=== PATIENT | female | born 1960 ===

== ENCOUNTER 2025-07-20 08:05 | Outpatient (AMB) | payer MEDICARE, SELFPAY ==
--- OUTSIDE RECORDS SUMMARY | 2025-07-20 08:25 | XMS_ITS | Clinical Summary ---
Author Organization Patient Business Ser [facility] Address [address] [place] [address] Care Team Providers Care Offc Spec Name Role Phone Candace Mirza MD Primary Care Provider Allergies No known active allergies Medications acetaminophen (TYLENOL 8 HOUR) 650 mg 8 hr tablet Take 1 Tablet by mouth every 8 hours as needed for Pain for up to 30 days. 09/09/20 22 Active calcium carbonate-vit D3-min 600 mg-10 mcg (400 unit) tablet Take 1 Tablet by mouth daily. 01/05/20 24 Active ibuprofen (ADVIL,MOTRIN) 600 mg tablet Take 1 Tablet by mouth every 8 hours as needed for Pain (for back pain as needed.). 10/27/20 23 Active rizatriptan (MAXALT-ACID PUMP OPERATOR) 10 mg disintegrating tablet May repeat in 2 hours if unresolved. Do not exceed 30 mg in 24 hours. 9 tablet 1 01/19/20 25 Active atorvastatin (LIPITOR) 20 mg tabletIndications: Hyperlipidemia, unspecified TAKE 1 TABLET BY MOUTH EVERY DAY 90 tablet 1 03/07/20 25 Active spironolactone (ALDACTONE) 25 mg tabletIndications: Essential hypertension Take 1 tablet (25 mg total) by mouth 1 (one) time each day. 90 each 1 04/06/20 25 Active semaglutide (Wegovy) 2.4 mg/0.75 mL injection penIndications:Cla ss 2 obesity without serious comorbidity with body mass index (BMI) of 36.0 to 36.9 in adult, unspecified obesity type Inject 2.4 mg under the skin every 7 (seven) days. INJECT 2.4 MG SUBCUTANEOUSLY ONE TIME PER WEEK 9 mL 1 04/06/20 25 Active triamterene-hydroC HLOROthiazide (MAXZIDE) 75-50 mg per tablet Take 1 tablet by mouth 1 (one) time each day. Active topiramate (TOPAMAX) 100 mg tablet TAKE 1 TABLET BY MOUTH TWICE A DAY 180 tablet 05/23/20 25 Active amLODIPine (NORVASC) 10 mg tablet Take 1 tablet (10 mg total) by mouth 1 (one) time each day. 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 Iron deficiency anemia 03/01/2015 Essential hypertension, benign 10/21/2009 Hyperlipidemia 10/21/2009 Migraine 10/21/2009 Encounters Date Type Department Care Team Description 04/19/2025 1:15 PM EDT Office Visit Pulmonolgy - [address] [place] [address] Olga Cooper MD Obstructive sleep apnea syndrome (Primary Dx); Sleep apnea, unspecified; Nocturnal hypoxemia; Gastroesophageal reflux disease without esophagitis; Morbid obesity ([facility] V24, [facility] V28) from Last 3 Months Immunizations Name Administration Dates Next Due Influenza Quadravalent, MDCK , 0.5ml, preservative free (Flucelvax) 6mo and older 07/30/2023,08/05/2022,08/03/2021 Influenza trivalent, 0.5mL, preservative free (Fluarix; FluLaval; Fluzone) ages 6mo and older (Afluria) 3 years and older 09/12/2024,07/30/2023,08/26/2020,2018,09/30/2013,09/16/2012,08/09/2011 Influenza trivalent, MDCK, 0 .5mL, preservative free (Flucelvax) 6mo and older 09/11/2024 Influenza trivalent, with preservative (Fluzone; Afluria) 6mo and older 08/26/2020,08/19/2019,09/30/2013,2011,08/09/2011 Moderna SARS-CoV-2 COVID-19, mRNA, LNP-S, preservative free 10/22/2021 RSV, bivalent, protein subun it RSVpreF, 0.5mL, Preservative Free (Arexvy) 60yo and older 01/07/2025,01/06/2024 Td Tetanus diptheria (Tdvax) 7yo and older 08/03/2021,10/20/2009 Tdap Tetanus diptheria acell ular pertussis (Boostrix; Adacel) 7yo and older 07/30/2023 Zoster recombinant (Shingrix ) 19yo and older 11/18/2020,08/26/2020 Surgical History Surgery Date Site/Laterality Comments LAPAROSCOPIC GASTRIC BANDING 05/2009 PROCEDURE: LAP ADJUSTABLE GASTRIC BAND BACK SURGERY 2003 PROCEDURE: HISTORICAL BACK SURGERY; COMMENT: Bulging, herniated disks L4 - L5 COLONOSCOPY 08/24/2010 PROCEDURE: HISTORICAL COLONOSCOPY; COMMENT: normal; repeat in ten years HERNIA REPAIR 12/11/2018 PROCEDURE: HISTORICAL HERNIA REPAIR/ING; COMMENT: unfill of lap band and laparoscopic hiatal hernia repair COLONOSCOPY 2017 PROCEDURE: HISTORICAL COLONOSCOPY; COMMENT: Celia; erosions in the TI. UPPER GASTROINTESTINAL ENDOSCOPY 2017 PROCEDURE: CT UPPER GI ENDOSCOPY PERFORMED; COMMENT: Celia; PREET grade A reflux esophagitis. SHOULDER SURGERY 09/09/2022 Left PROCEDURE: HISTORICAL SHOULDER SURGERY; COMMENT: decompression and rotator cuff repair HYSTERECTOMY PROCEDURE: HISTORICAL HYSTERECTOMY Medical History Medical History Date Comments Hyperlipidemia DX:Hyperlipidemi a Migraine 10/21/2009 DX:Migraine GERD (gastroesophageal reflux disease) 7 DX:GERD (gastroesophageal reflux disease) History of basal cell carcinoma 04/25/2016 DX:History of basal cell carcinoma; COMMENT: Nose LAP-BAND surgery status 10/21/2009 DX:LAP-B AND surgery status Iron deficiency anemia 03/01/2015 DX:Iron d eficiency anemia Essential hypertension, benign 10/21/2009 D X:Essential hypertension, benign Calcific tendinitis of right shoulder 12/31/2017 DX:Calcific tendinitis of right shoulder Biceps tendinitis of right shoulder 12/31/2017 DX:Biceps tendinitis of right shoulder Osteopenia 08/31/2018 DX:Osteopenia; C OMMENT: 07/2017 T score hip -1.1 FRAX score 6.1% 10 year fracture risk 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 surgical procedure 08/31/2018 DX: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 surgical procedure; COMMENT: 07/2017 U/S unchanged; ovarian cysts stable; Post hysterectomy Calculus of gallbladder with out cholecystitis without obstruction 05/25/2019 DX:Calculus of gallb ladder without cholecystitis without obstruction Family History Medical History Relation Name Comments Hypertension Brother Diabetes Father hypertension, s troke Hypertension Mother Lung cancer Sister 1 age 54 Hypertension Sister 2 Hypertension Sister 3 Hypertension Sister 4 Hypertension Sister 5 Breast cancer Neg Hx Cancer of Small Bowel Neg Hx Colon cancer Neg Hx Kidney cancer Neg Hx Ovarian cancer Neg Hx Pancreatic cancer Neg Hx Prostate cancer Neg Hx Uterine cancer Neg Hx Relation Name Status Comments Brother Alive Father Alive /strok e Maternal Grandfather Maternal Grandmother Mother Alive Paternal Grandfather Paternal Grandmother Sister 1 Sister 2 Alive Sister 3 Alive Sister 4 Alive Sister 5 Alive Social History Tobacco Use Types Packs/Day Years Used Date Smoking Tobacco: Former Cigarettes 0.5 29 0 1975 - 2004 Smokeless Tobacco: Never Tobacco Cessation:Counseling Given: Not Answered Alcohol Use Standard Drinks/Week Comments Yes 0 (1 standard drink = 0.6 oz pur e alcohol) Housing Instability Answer Date Recorde d Are you worried that in the next 2 months you may not have stable housing? Patient declined 10/18/2024 Food Access & Nutrition Answer Date Rec orded Do you have access to a vari ety of food including fruits and vegetables? Patient declined 10/18/2024 Access to Healthcare Answer Date Record ed Within the last 3 months, ho w many times did you visit the emergency department for your medical care? 0 10/18/2024 Health Literacy Answer Date Recorded How often do you need to hav e someone help you when you read instructions, pamphlets, or other written material from your doctor or pharmacy? Never 10/18/2024 Caregiver: How often do you need to have someone help you when you read instructions, pamphlets, or other written material from your doctor or pharmacy? Not on file 10/18/2024 Financial Risk Answer Date Recorded How hard is it for you to pa y for the very basics like food, housing, medical care, and air conditioning / heating? Patient declined 10/18/2024 Transportation Answer Date Recorded Has the lack of transportati on kept you from meetings, work, or from getting things needed for daily living? No Has the lack of transportati on kept you from medical appointments or from getting medications? No 10/18/2024 Social Isolation Answer Date Recorded How often do you feel lonely or isolated from th ose around you? Never 10/18/2024 Food Risk Answer Date Recorded Within the past 12 months we worried whether our food would run out before we got money to buy more. Patient declined 024 Within the past 12 months th e food we bought just didn't last and we didn't have money to get more. Patient declined 12/2023 Dependent Care Answer Date Recorded Do you need help finding or paying for care for your loved ones. For example, child care centre manager or elderly care for an older adult? No 10/18/2024 Education Answer Date Recorded Do you think completing more education or training, like finishing a GED, going to college, or learning a trade, would be helpful for you? No 10/18/2024 Employment and Income Answer Date Recor ded During the last four weeks, have you been actively looking for work? No 10/18/2024 Living Situation Answer Date Recorded What is your living situation? 1 12/19/2023 Comments No Sex and Gender Information Value Date Recorded Sex Assigned at Not on file Legal Sex Female 11:34 AM EDT Gender Identity Female 07/18/2025 11:25 AM EDT Sexual Orientation Not on file Obstetrics History Para Term AB IAB SAB Ectopic Multiple Livin g Live Births 3 3 3 3 Date Outcome GA Total Labor Labor/2nd/3rd Weight Sex Type Anes PTL Day A1 A5 Name Clin Term Term Term Last Filed Vital Signs Vital Sign Reading Time Taken Comments Blood Pressure 138/85 04/19/2025 1:14 PM EDT Pulse 66 04/19/2025 1:14 PM EDT Temperature 36.3 C (97.3 F) 04/19/2025 1:14 PM EDT Respiratory Rate 20 04/19/2025 1:14 PM EDT Oxygen Saturation 100% 04/19/2025 1:14 PM EDT Inhaled Oxygen Concentration - - Weight 94.3 kg (208 lb) 04/19/2025 1:14 PM EDT Height 162.6 cm (5' 4 ) 04/19/2025 1:14 PM EDT Body Mass Index 35.7 04/19/2025 1:14 PM EDT Plan of Treatment Upcoming Encounters Date Type Department Care Team (Late st Contact Info) Description 09/07/2025 2:30 PM EDT Office Visit Adult Medicine [facility] [address] [place] [id number] Sajan Atkins PA [address] [place], [place] 10/07/2025 8:30 AM EST Office Visit Adult Medicine [address] [phone] Candaec Mirza MD [address] [place] [address] 01/23/2026 8:00 AM EDT Appointment Radiology Department - [address] [place] [address] 04/19/2026 8:00 AM EDT [facility] [address] [place] [address] Olga Cooper MD [address] [place] [address] Health Maintenance Due Date Last Done Comments Pneumococcal Vaccine: 50+ Years (1 of 1 - PCV) 2010 Falls Risk Assessment 2025 COVID-19 Vaccine (3 - 2024- season) 2025 10/22/2021, 02/19/2021 Influenza Vaccine (#1) 2025 , 09/11/2024, 07/30/2023, Additional history exists Social Influencers of Health Screening 10/18/2025 10/18/2024 Hypertension/CHF/CAD Annual BMP Blood Test 02/04/2026 02/04/2025, 10/19/2024, 06/14/2024, Additional history exists Breast Cancer Screening 01/20/2027 01/21/20 25, 01/13/2024, 01/04/2023, Additional history exists Colorectal Cancer Screening: Colonoscopy 09/24/2027 09/24/2017 Cholesterol Screening (Lipid Panel) 02/04/2030 02/04/2025, 06/14/2024, 06/14/2024 Osteoporosis Screening (Bone Density Screening) 10/16/2031 10/16/2021 DTaP,Tdap,and Td Vaccines (4 - Td or Tdap) 07/30/2033 07/30/2023, 08/03/2021, 10/20/2009 Hepatitis C Screening Completed 05/24/2019 Zoster Vaccines Completed 11/18/2020, 08/26/2020 RSV Immunization Adult Patients Completed 01/07/2025, 01/06/2024 Depression Screening Completed 03/30/2025 HIB Vaccines Aged Out No longer eligi ble based on patient's age to complete this topic HPV Vaccines Aged Out No longer eligi ble based on patient's age to complete this topic Hepatitis A Vaccines Aged Out No long er eligible based on patient's age to complete this topic Hepatitis B Vaccines Aged Out No long er eligible based on patient's age to complete this topic IPV Vaccines Aged Out No longer eligi ble based on patient's age to complete this topic MMR Vaccines Aged Out No longer eligi ble based on patient's age to complete this topic Meningococcal ACWY Vaccine Aged Out N o longer eligible based on patient's age to complete this topic Meningococcal B Vaccine Aged Out No l onger eligible based on patient's age to complete this topic RSV Immunization Patients Under 20 months Aged Out No longer eligible based on patient's age to complete this topic Varicella Vaccines Aged Out No longer eligible based on patient's age to complete this topic Procedures Procedure Name Priority Date/Time Associated Diagnosis Comments COMPREHENSIVE METABOLIC PANEL Routine 02/04/2025 7:51 AM EDT Adult general medical examination Hyperlipidemia, unspecified hyperlipidemia type Prediabetes Essential hypertension LIPID PANEL WITH REFLEX TO DIRECT LDL Routine 02/04/2025 7:51 AM EDT Adult general medical examination Hyperlipidemia, unspecified hyperlipidemia type Prediabetes Essential hypertension MG MAMMO DIGITAL SCREENING W DAYDAY BILAT Routine 01/20/2025 7:55 AM EST Encounter for screening mammogram for breast cancer DXA BONE DENSITY STUDY 1+ SITS AXIAL SKEL Routine 10/16/2021 9:14 AM EST Other specified disorders of bone density and structure, unspecified site HEPATITIS C SCREENING Routine 05/24/2019 COLONOSCOPY Routine 09/24/2017 from Last 3 Months or Most Recently Relevant to Health Maintenance Results * (ABNORMAL) Lipid panel with reflex to direct LDL (02/04/2025 7:51 AM EDT) Cholesterol 167 0 - 200 mg/dL LAB CHEMISTRY METHOD 02/04/2025 10:01 AM EDT [facility] Triglycerides 168(H) 0 - 150 mg/dL LAB CHEMISTRY METHOD 02/04/2025 10:01 AM EDT [facility] HDL 58 >=40 mg/dL LAB CHEMISTRY METHOD 02/04/2025 10:01 AM T [facility] LDL Calculated 75 0 - 100 mg/dL LAB CHEMISTRY METHOD 02/04/2025 10:01 AM [facility] VLDL Cholesterol Mohsen 33.6 mg/dL LAB CHEMISTRY METHOD 02/04/2025 10:01 AM [facility] Non HDL Chol. (LDL+VLDL) 109 <145 mg/dL LAB CHEMISTRY METHOD 02/04/2025 10:01 AM [facility] Chol/HDL Ratio 2.9 0.0 - 4.4 LAB CHEMISTRY METHOD 02/04/2025 10:01 AM [facility] Blood Venous blood specimen / Unknown Venipuncture / Unknown 02/04/2025 7:51 AM EDT 02/04/2025 9:10 AM EDT us Sajan JOSHUA LAB BLOOD ORDERABLES Final Re sult [facility] [address] [place] [address], [place] [phone] * (ABNORMAL) Comprehensive metabolic panel (02/04/2025 7:51 AM EDT) Sodium 145 133 - 145 mmol/L LAB CHEMISTRY METHOD 02/04/2025 10:01 AM [facility] Potassium 3.5 3.5 - 5.5 mmol/L LAB CHEMISTRY METHOD 02/04/2025 10:01 AM [facility] Chloride 116(H) 96 - 110 mmol/L LAB CHEMISTRY METHOD 02/04/2025 10:01 AM [facility] CO2 22 21 - 32 mmol/L LAB CHEMISTRY METHOD 02/04/2025 10:01 AM [facility] Anion Gap 7 3 - 11 LAB CHEMISTRY METHOD 02/04/2025 10:01 AM [facility] Glucose 92 70 - 100 mg/dL LAB CHEMISTRY METHOD 02/04/2025 10:01 AM [facility] BUN 16 5 - 25 mg/dL LAB CHEMISTRY METHOD 02/04/2025 10:01 AM [facility] Creatinine 0.86 0.50 - 1.10 mg/dL LAB CHEMISTRY METHOD 02/04/2025 10:01 AM [facility] eGFR 76 >=60 mL/min/1. 73m2 LAB CHEMISTRY METHOD 02/04/2025 10:01 AM [facility] Comment:Calculation based on the Chronic Kidney Disease Epidemiology Collaboration (CKD-EPI) equation refit without adjustment for race. BUN/Creatinine Ratio 18.6 LAB CHEMISTRY METHOD 02/04/2025 10:01 AM [facility] Calcium 9.4 8.5 - 10.5 mg/dL LAB CHEMISTRY METHOD 02/04/2025 10:01 AM [facility] AST (SGOT) 24 10 - 42 unit/L LAB CHEMISTRY METHOD 02/04/2025 10:01 AM [facility] ALT (SGPT) 33 10 - 60 unit/L LAB CHEMISTRY METHOD 02/04/2025 10:01 AM [facility] Alkaline Phosphatase 118 42 - 121 unit/L LAB CHEMISTRY METHOD 02/04/2025 10:01 AM [facility] Total Protein 6.6 6.0 - 8.0 g/dL LAB CHEMISTRY METHOD 02/04/2025 10:01 AM [facility] Albumin 3.6 3.2 - 5.0 g/dL LAB CHEMISTRY METHOD 02/04/2025 10:01 AM [facility] Total Bilirubin 0.5 0.0 - 1.4 mg/dL LAB CHEMISTRY METHOD 02/04/2025 10:01 AM [facility] Blood Venous blood specimen / Unknown Venipuncture / Unknown 02/04/2025 7:51 AM EDT 02/04/2025 9:10 AM EDT us Sajan JOSHUA LAB BLOOD ORDERABLES Final Re sult [facility] [address] [place] [address], [place] [phone] * MG Mammo Digital Screening w Dayday bilat (01/20/2025 7:55 AM EST) Anatomical Region Laterality Modality Breast Bilateral Mammography 01/20/2025 6:43 PM EST Impressions 01/20/2025 6:46 PM EST No mammographic evidence of malignancy. BREAST DENSITY: B - There are scattered areas of fibroglandular density. BI-RADS CATEGORY: 1 - NEGATIVE RECOMMENDATION: Screening bilateral mammogram is recommended in 1 year. MAMMO LOCATION: [facility], [address] [place] [address], [id number], . -------- FINAL REPORT -------- Dictated By: Amanda Cantu Dictated Date: 01/20/2025 18:43 ET Assigned Physician: Amanda Cantu Reviewed and Electronically Signed By: Amanda Cantu Signed Date: 01/20/2025 18:46 ET Workstation ID: [id number] Transcribed By: Self Edit Transcribed Date: 01/20/2025 18:43 ET Narrative 01/20/2025 6:46 PM EST EXAM: Screening Mammogram CLINICAL: 64 years old, Female, routine annual exam. COMPARISON: 01/13/2024 and as far back as 12/16/2020 TECHNIQUE: Bilateral MLO and CC views were obtained digitally with 3-D mammogram (digital breast tomosynthesis). Computer-aided detection was utilized in evaluation of this exam (CAD). FINDINGS: No new suspicious mass, architectural distortion, or suspicious calcifications. Procedure Note Amanda Cantu MD - 01/20/2025 EXAM: Screening Mammogram CLINICAL: 64 years old, Female, routine annual exam. COMPARISON: 01/13/2024 and as far back as 12/16/2020 TECHNIQUE: Bilateral MLO and CC views were obtained digitally with 3-Dmammogram (digital breast tomosynthesis). Computer-aided detection wasutilized in evaluation of this exam (CAD). FINDINGS: No new suspicious mass, architectural distortion, or suspiciouscalcifications. IMPRESSION: No mammographic evidence of malignancy. BREAST DENSITY: B - There are scattered areas of fibroglandular density. BI-RADS CATEGORY: 1 - NEGATIVE RECOMMENDATION: Screening bilateral mammogram is recommended in 1 year. MAMMO LOCATION: [facility], [address] [place] [address], [id number], . -------- FINAL REPORT -------- Dictated By: Amanda Cantu Dictated Date: 01/20/2025 18:43 ET Assigned Physician: Amnada Cantu Reviewed and Electronically Signed By: Amanda Cantu Signed Date: 01/20/2025 18:46 ET Workstation ID: [id number] Transcribed By: Self Edit Transcribed Date: 01/20/2025 18:43 ET us Candace Mirza MD IMG BI PROCEDURES Sarina l Result * DXA BONE DENSITY STUDY 1+ SITS AXIAL SKEL (10/16/2021 9:14 AM EST) Anatomical Region Laterality Modality Bone Densitometr y 08/16/2020 9:58 AM EDT Narrative 10/16/2021 3:42 PM EST BONE DENSITY Lumbar Spine T-score is -1.1 (SD relative to 20-29 y/o adult) Z-score is +0.4 (SD relative to age matched peers) This is consistent with osteopenia by criteria defined by the WHO. Left Hip T-score is -1.7 Z-score is -0.4 This is consistent with osteopenia by criteria defined by the WHO. Impression: Based on the World Health Organization criteria, Abigail Mcintyre should be classified as having osteopenia. This patient has a 7.8% risk of major osteoporotic fracture and a 0.8% risk of hip fracture over the next 10 years. (World Health Organization Fracture Risk Assessment) [facility] Department of Internal Medicine recommends using National Osteoporosis Foundation (NOF) guidelines in treatment decisions related to osteoporosis. NOF guidelines suggest considering treatment for postmenopausal women and men aged 50 or older presenting with the following: History of hip or vertebral fracture. T-score less than or equal to -2.5 (DXA) at the femoral neck, total hip, or spine, after appropriate evaluation to exclude secondary causes. Low bone mass (T-score between -1.0 and -2.5 at the femoral neck or spine) AND a 10-year probability of a hip fracture greater than or equal to 3% OR a 10-year probability of a major osteoporosis-related fracture greater than or equal to 20% based on the [place]-adapted WHO algorithm Please note that all treatment decisions require clinical judgment and consideration of individual patient factors, including patient preferences, co-morbidities, previous drug use, risk factors not captured in the FRAX model (e.g., frailty, falls, vitamin D deficiency, increased bone turnover, interval significant decline in bone density) and possible under- or over-estimation of fracture risk by FRAX. Procedure Note Len Blanco MD - 11/05/2022 BONE DENSITY Lumbar Spine T-score is -1.1 (SD relative to 20-29 y/o adult) Z-score is +0.4 (SD relative to age matched peers) This is consistent with osteopenia by criteria defined by the WHO. Left Hip T-score is -1.7 Z-score is -0.4 This is consistent with osteopenia by criteria defined by the WHO. Impression: Based on the World Health Organization criteria, Abigail Mcintyre should beclassified as having osteopenia. This patient has a 7.8% risk of majorosteoporotic fracture and a 0.8% risk of hip fracture over the next 10years. (World Health Organization Fracture Risk Assessment) [facility] Department of Internal Medicine recommendsusing National Osteoporosis Foundation (NOF) guidelines in treatmentdecisions related to osteoporosis. NOF guidelines suggest consideringtreatment for postmenopausal women and men aged 50 or older presentingwith the following: History of hip or vertebral fracture. T-score less than or equal to -2.5 (DXA) at the femoral neck, total hip,or spine, after appropriate evaluation to exclude secondary causes. Low bone mass (T-score between -1.0 and -2.5 at the femoral neck or spine)AND a 10-year probability of a hip fracture greater than or equal to 3% ORa 10-year probability of a major osteoporosis-related fracture greaterthan or equal to 20% based on the [place]-adapted WHO algorithm Please note that all treatment decisions require clinical judgment andconsideration of individual patient factors, including patientpreferences, co-morbidities, previous drug use, risk factors not capturedin the FRAX model (e.g., frailty, falls, vitamin D deficiency, increasedbone turnover, interval significant decline in bone density) and possibleunder- or over-estimation of fracture risk by FRAX. Kassie JOSHUA IMG DXA PROCEDURES Final R esult * Hepatitis C Screening (05/24/2019) [facility] Hepatitis C Screening Abstracted [facility] Provider HEALTH MAINTENANCE Final Result * Colonoscopy (09/24/2017) [facility] Colonoscopy No interpretation , Abstracted Anatomical Region Laterality Modality Other Historical Provider HEALTH MAINTENANCE Final Result from Last 3 Months or Most Recently Relevant to Health Maintenance Insurance [facility] Care Teams Offc Spec Relationship Specialty Start Date End Date Candace Mirza MD [address] [place] [id number] PCP - General Internal Medicine 01/22/22
== END 2025-07-20 08:35 | disposition home or self-care (01) ==
LOC: HO.HMGAL 08:05
PROVIDERS: PCP Pediatrics; Visit Provider Registered Nurse Emergency
DX: J30.89 Other allergic rhinitis (principal)
CPT/HCPCS: 95117; 95165

== ENCOUNTER 2025-08-24 08:19 | Outpatient (AMB) | payer MEDICARE, SELFPAY | END 2025-08-24 08:35 | disposition home or self-care (01) | LOC: HO.HMGAL 08:19 | PROVIDERS: PCP Family Medicine; Visit Provider Registered Nurse Emergency | DX: J30.89 Other allergic rhinitis (principal) | CPT/HCPCS: 95117; 95165 ==

== ENCOUNTER 2025-09-28 08:12 | Outpatient (AMB) | payer MEDICARE, SELFPAY ==
--- OUTSIDE RECORDS SUMMARY | 2025-09-28 08:15 | XMS_ITS | Clinical Summary ---
Author Organization Patient Business Ser [facility] Address [address] [place] [address] Care Team Providers Care Android Ios Developer Name Role Phone Candace Mirza MD Primary Care Provider Allergies No known active allergies Medications calcium carbonate-vit D3-min 600 mg-10 mcg (400 unit) tablet Take 1 Tablet by mouth daily. 01/05/20 24 Active rizatriptan (MAXALT-BOTTLING LINE OPERATOR) 10 mg disintegrating tablet May repeat in 2 hours if unresolved. Do not exceed 30 mg in 24 hours. 9 tablet 1 01/19/20 25 Active amLODIPine (NORVASC) 10 mg tablet Take 1 tablet (10 mg total) by mouth 1 (one) time each day. 90 tablet 1 06/03/20 25 Active semaglutide (Wegovy) 2.4 mg/0.75 mL injection penIndications:Ess ential hypertension Inject 2.4 mg under the skin every 7 (seven) days. INJECT 2.4 MG SUBCUTANEOUSLY ONE TIME PER WEEK 9 mL 1 08/19/20 25 Active atorvastatin (LIPITOR) 20 mg tabletIndications: Hyperlipidemia, unspecified Take 1 tablet (20 mg total) by mouth 1 (one) time each day. 90 tablet 1 08/19/20 25 Active topiramate (TOPAMAX) 100 mg tabletIndications: Other migraine without status migrainosus, not intractable Take 1 tablet (100 mg total) by mouth 2 (two) times a day. 180 tablet 1 08/19/20 25 Active spironolactone (ALDACTONE) 25 mg tabletIndications: Essential hypertension Take 1 tablet (25 mg total) by mouth 1 (one) time each day. 90 each 1 08/19/20 25 Active Active Problems Problem Noted Date Diagnosed Date Sleep apnea 04/13/2025 Nocturnal hypoxemia 04/13/2025 Anxiety 06/13/2022 Morbid obesity ([facility] V24, [facility] V28) 2021 Prediabetes 05/07/2022 Right-sided chest wall [...] 2017---grade A esophagitis. Iron deficiency anemia 03/01/2015 Hyperlipidemia 10/21/2009 Migraine 10/21/2009 Resolved Problems Problem Noted Date Diagnosed Date Resolved Date Essential hypertension, benign 10/21/2009 08/19/2025 Encounters Date Type Department Care Team Description 08/22/2025 Telephone Adult Medicine [facility] [address] [place] [phone] Sajan Atkins PA 08/19/2025 9:30 AM EDT Office Visit Adult Medicine [facility] [address] [place] [phone] Sajan Atkins PA Class 2 obesity (Primary Dx); Essential hypertension; Hyperlipidemia, unspecified; Obstructive sleep apnea syndrome; Other migraine without status migrainosus, not intractable; Flu vaccine need 08/19/2025 Results Follow-Up Adult Medicine [facility] [address] [place] [address] Sajan Atkins PA from Last 3 Months Immunizations Immunization Administration Dates Next Due Influenza Quadravalent, MDCK , 0.5ml, preservative free (Flucelvax) 6mo and older 07/30/2023,08/05/2022,08/03/2021 Influenza trivalent, 0.5mL ( Fluad) 65yo and older 08/19/2025 Influenza trivalent, 0.5mL, preservative free (Fluarix; FluLaval; Fluzone) ages 6mo and older (Afluria) 3 years and older 09/12/2024,07/30/2023,08/26/2020,2018,09/30/2013,09/16/2012,08/09/2011 Influenza trivalent, MDCK, 0 .5mL, preservative free (Flucelvax) 6mo and older 09/11/2024 Influenza trivalent, with preservative (Fluzone; Afluria) 6mo and older 08/26/2020,08/19/2019,09/30/2013,2011,08/09/2011 Moderna SARS-CoV-2 COVID-19, mRNA, LNP-S, preservative free 10/22/2021 RSV, bivalent, protein subun it RSVpreF, 0.5mL, Preservative Free (Arexvy) 50yo and older 01/07/2025,01/06/2024 Td Tetanus diptheria (Tdvax) [...] the TI. UPPER GASTROINTESTINAL ENDOSCOPY 2017 PROCEDURE: NC UPPER GI ENDOSCOPY PERFORMED; COMMENT: Celia; [place] grade A reflux esophagitis. SHOULDER SURGERY 09/09/2022 [...] for your loved ones. For example, child psychiatrist or elderly care for an older adult? [...] Date Recorded What is your living situation? Unrecognized valu e 10/18/2024 Comments No Sex and Gender Information Value [...] Sign Reading Time Taken Comments Blood Pressure 132/80 08/19/2025 9:35 AM EDT Pulse 48 08/19/2025 9:15 AM EDT Temperature 36.3 C (97.4 F) 08/19/2025 9:15 AM EDT Respiratory Rate 20 04/19/2025 1:14 PM EDT Oxygen Saturation 100% 04/19/2025 1:14 PM EDT Inhaled Oxygen Concentration - - Weight 96.2 kg (212 lb) 08/19/2025 9:15 AM EDT Height 162.6 cm (5' 4 ) 04/19/2025 1:14 PM EDT Body Mass Index 36.39 04/19/2025 1:14 PM EDT Plan of Treatment Upcoming Encounters Date Type Department Care Team (Late st Contact Info) Description 01/23/2026 8:00 AM EDT Appointment Radiology Department [address] [address] 04/11/2026 9:30 AM EDT Office Visit Adult Medicine - [place] [address] [place] [phone] Candace Mirza MD [address] [place] [address] 04/19/2026 8:00 AM EDT Office Visit Pulmonology - [address] [place] [phone] Olga Cooper MD [address] [place] [phone] Health Maintenance Due Date Last Done Comments Pneumococcal Vaccine: 50+ Years (1 of 1 - PCV) 2010 Medicare Annual Wellness Visit 08/27/2020 Falls Risk Assessment 2025 COVID-19 Vaccine ( season) 2025 10/22/2021, 02/19/2021 Social Influencers of Health Screening 10/18/2025 10/18/2024 Hypertension/CHF/CAD Annual BMP Blood Test 08/19/2026 08/19/2025, 02/04/2025, 10/19/2024, Additional history exists Breast Cancer Screening 01/20/2027 01/21/20, 01/13/2024, 01/04/2023, Additional history exists Colorectal Cancer Screening: Colonoscopy 09/24/2027 09/24/2017 Cholesterol Screening (Lipid Panel) 08/19/2030 08/19/2025, 02/04/2025, 06/14/2024, Additional history exists Osteoporosis Screening (Bone Density Screening) 10/16/2031 10/16/2021 DTaP,Tdap,and Td Vaccines (4 - Td or Tdap) 07/30/2033 07/30/2023, 08/03/2021, 10/20/2009 Hepatitis C Screening Completed 05/24/2019 Zoster Vaccines Completed 11/18/2020, 08/26/2020 RSV Immunization Adult Patients Completed 01/07/2025, 01/06/2024 Depression Screening Completed 03/30/2025 Influenza Vaccine Completed 08/19/2025, , 09/11/2024, Additional history exists HIB Vaccines Aged Out No longer eligi [...] Procedure Name Priority Date/Time Associated Diagnosis Comments LIPID PANEL WITH REFLEX TO DIRECT LDL Routine 08/19/2025 9:44 AM EDT Routine general medical examination at a health care facility Essential hypertension Class 2 obesity without serious comorbidity with body mass index (BMI) of 36.0 to 36.9 in adult, unspecified obesity type COMPREHENSIVE METABOLIC PANEL Routine 08/19/2025 9:44 AM EDT Routine general medical examination at a health care facility Essential hypertension Class 2 obesity without serious comorbidity with body mass index (BMI) of 36.0 to 36.9 in adult, unspecified obesity type MG MAMMO DIGITAL SCREENING W DAYDAY BILAT [...] Lipid panel with reflex to direct LDL (08/19/2025 9:44 AM EDT) Cholesterol 189 0 - 200 mg/dL LAB CHEMISTRY METHOD 08/19/2025 12:34 PM EDT [facility] Triglycerides 175(H) 0 - 150 mg/dL LAB CHEMISTRY METHOD 08/19/2025 12:34 PM EDT [facility] HDL 70 >=40 mg/dL LAB CHEMISTRY METHOD 08/19/2025 12:[address] [facility] LDL Calculated 84 0 - 100 mg/dL LAB CHEMISTRY METHOD 08/19/2025 12:[address] [facility] Comment:Estimated LDL Calcul ated using equation: Total cholesterol - HDL cholesterol - (Triglycerides/5) VLDL Cholesterol Mohsen 35 mg/dL LAB CHEMISTRY METHOD 08/19/2025 12:[address] [facility] Non HDL Chol. (LDL+VLDL) 119 <145 mg/dL LAB CHEMISTRY METHOD 08/19/2025 12:[address] [facility] Chol/HDL Ratio 2.7 0.0 - 4.4 LAB CHEMISTRY METHOD 08/19/2025 12:[address] [facility] Blood Venous blood specimen / Unknown Venipuncture / Unknown 08/19/2025 9:44 AM EDT 08/19/2025 9:44 AM EDT us Sajan JOSHUA LAB BLOOD ORDERABLES Final Re sult [facility] [address] [place] [address], * (ABNORMAL) Comprehensive metabolic panel (08/19/2025 9:44 AM EDT) Sodium 142 133 - 145 mmol/L LAB CHEMISTRY METHOD 08/19/2025 12:[address] [facility] Potassium 3.9 3.5 - 5.5 mmol/L LAB CHEMISTRY METHOD 08/19/2025 12:[address] [facility] Chloride 112(H) 96 - 110 mmol/L LAB CHEMISTRY METHOD 08/19/2025 12:[address] [facility] CO2 22 21 - 32 mmol/L LAB CHEMISTRY METHOD 08/19/2025 12:[address] [facility] Anion Gap 8 3 - 11 LAB CHEMISTRY METHOD 08/19/2025 12:[address] [facility] Glucose 94 70 - 100 mg/dL LAB CHEMISTRY METHOD 08/19/2025 12:[address] [facility] BUN 19 5 - 25 mg/dL LAB CHEMISTRY METHOD 08/19/2025 12:[address] [facility] Creatinine 1.00 0.50 - 1.10 mg/dL LAB CHEMISTRY METHOD 08/19/2025 12:[address] [facility] eGFR 63 >=60 mL/min/1. 73m2 LAB CHEMISTRY METHOD 08/19/2025 12:[address] [facility] Comment:Calculation based on the Chronic Kidney Disease Epidemiology Collaboration (CKD-EPI) equation refit without adjustment for race. BUN/Creatinine Ratio 19.0 LAB CHEMISTRY METHOD 08/19/2025 12:[address] [facility] Calcium 9.4 8.5 - 10.5 mg/dL LAB CHEMISTRY METHOD 08/19/2025 12:[address] [facility] AST (SGOT) 13 10 - 42 unit/L LAB CHEMISTRY METHOD 08/19/2025 12:[address] [facility] ALT (SGPT) 28 10 - 60 unit/L LAB CHEMISTRY METHOD 08/19/2025 12:[address] [facility] Alkaline Phosphatase 102 42 - 121 unit/L LAB CHEMISTRY METHOD 08/19/2025 12:[address] [facility] Total Protein 6.2 6.0 - 8.0 g/dL LAB CHEMISTRY METHOD 08/19/2025 12:[address] [facility] Albumin 3.7 3.2 - 5.0 g/dL LAB CHEMISTRY METHOD 08/19/2025 12:[address] [facility] Total Bilirubin 0.4 0.0 - 1.4 mg/dL LAB CHEMISTRY METHOD 08/19/2025 12:[address] [facility] Blood Venous blood specimen / Unknown Venipuncture / Unknown 08/19/2025 9:44 AM EDT 08/19/2025 9:44 AM EDT us Sajan JOSHUA LAB BLOOD ORDERABLES Final Re sult [facility] [address] [place] [address], [place] [phone] * MG Mammo Digital Screening w Dayday bilat (01/20/2025 7:55 AM EST) Anatomical Region Laterality Modality Breast Bilateral Mammography 01/20/2025 6:43 PM EST Impressions 01/20/2025 6:46 PM EST No mammographic evidence of malignancy. BREAST DENSITY: B - There are scattered areas of fibroglandular density. BI-RADS CATEGORY: 1 - NEGATIVE RECOMMENDATION: Screening bilateral mammogram is recommended in 1 year. MAMMO LOCATION: [facility], [address] [place] [address], [id number], . -------- FINAL REPORT -------- Dictated By: Amanda Cantu Dictated Date: 01/20/2025 18:43 ET Assigned Physician: Amanda Cantu Reviewed and Electronically Signed By: Amanda Cantu Signed Date: 01/20/2025 18:46 ET Workstation ID: [id number] Transcribed By: Self Edit Transcribed Date: 01/20/2025 [...] is recommended in 1 year. MAMMO LOCATION: [facility], [address] [place] [address], [address], . -------- FINAL REPORT -------- Dictated By: Amanda Cantu Dictated Date: 01/20/2025 18:43 ET Assigned Physician: Amanda Cantu Reviewed and Electronically Signed By: Amanda Cantu Signed Date: 01/20/2025 18:46 ET Workstation ID: [id number] Transcribed By: Self Edit Transcribed Date: 01/20/2025 18:43 ET Candace Mirza MD IMG BI PROCEDURES Sarina [...] (World Health Organization Fracture Risk Assessment) The [facility] Department of Internal Medicine recommends using National [...] (World Health Organization Fracture Risk Assessment) The [facility] Department of Internal Medicine recommendsusing National Osteoporosis [...] R esult * Hepatitis C Screening (05/24/2019) [facility] Hepatitis C Screening Abstracted Historical Provider HEALTH MAINTENANCE Final Result * Colonoscopy (09/24/2017) [facility] Colonoscopy No interpretation , Abstracted Anatomical Region Laterality Modality Other Historical Provider HEALTH MAINTENANCE Final Result from Last 3 Months or Most Recently Relevant to Health Maintenance Insurance MEDICARE MEDICAID - [place] [employer] MEDICARE Care Teams Android Ios Developer Relationship Specialty Start Date End Date Candace Mirza MD [address] [place] [id number] PCP - General Internal Medicine 01/22/22
--- OUTSIDE RECORDS SUMMARY | 2025-09-28 08:15 | XMS_ITS | Encounter Summary ---
Author Organization [facility] Address [address] [place] [address] Care Team Providers Care Poultry Breeder Name Role Phone Candace Mirza MD Primary Care Provider Encounter Details Date Type Department Care Team ([facility] st Contact Info) Description 08/19/2025 Results Follow-Up Adult Medicine - [address] [phone] Sajan Atkins PA [address] [place] [address] Social History Tobacco Use Types Packs/Day Years Used Date Smoking Tobacco: Former Cigarettes 0.5 29 0 1975 - 2004 Smokeless Tobacco: Never Alcohol Use Standard Drinks/Week Comments Yes 0 [...] care for your loved ones. For example, early childhood or elderly care for an older adult? [...] AM EDT Sexual Orientation Not on file documented as of this encounter Plan of Treatment Upcoming Encounters Date Type Department Care Team (Late st Contact Info) Description 01/23/2026 8:00 AM EDT Appointment Radiology Department - [address] [address] 04/11/2026 9:30 AM EDT Office Visit Adult Medicine - [address] [phone] Candace Mirza MD [address] [place] [address] 04/19/2026 8:00 AM EDT Office Visit Pulmonology - [place] [address] [place] [phone] Olga Cooper MD [address] [place] [address] documented as of this encounter Visit Diagnoses Not on filedocumented in this encounter Additional Health Concerns Assessment Noted Time PHQ-9 Depression Total Score: 0 03/30/20 25 2:45 PM EDT documented as of this encounter Care Teams Poultry Breeder Relationship Specialty Start Date End Date Candace Mirza MD [address] [facility] [address] [place] [address] PCP - General Internal Medicine 01/22/22 documented as of this encounter
== END 2025-09-28 08:13 | disposition home or self-care (01) ==
LOC: HO.HMGAL 08:12
PROVIDERS: PCP Family Medicine; Visit Provider Registered Nurse Emergency
DX: J30.89 Other allergic rhinitis (principal)
CPT/HCPCS: 95117; 95165

== ENCOUNTER 2025-11-02 08:07 | Outpatient (AMB) | payer MEDICARE, SELFPAY ==
--- OUTSIDE RECORDS SUMMARY | 2025-11-02 08:13 | XMS_ITS | Data Portability ---
Author Organization [place] - [facility], Allergy Address [address] [address] Care Team Providers Care Filenet Developer Name Role Phone WILLIE ZHONG Primary Care Provider JAY CARRINGTON Referring Provider Assessment Encounter Date Assessment Date Assessment LastModified by Organization Details LastModified Time 07/28/2025 07/28/2025 65 year old female, and former patient of Dr. Carrington with a history of WANG on CPAP therapy and allergic rhinitis, presents to establish care with our office. Patient initiated SCIT 5+ years ago through Dr. Carrington's office. She receives injections on a monthly basis now with excellent effect and has not required comn-wme-[id number] medications for additional management. Last injection was on 07/20/25. Anterior rhinoscopy is notable for 1+ bilateral inferior turbinate hypertrophy. No evidence of polyps or purulence. I am glad to hear that her allergy symptoms are well-controlled with immunotherapy alone. It is unclear whether she can resume the injections according to her current regimen or if she needs repeat allergy testing prior to restarting them. I will clarify this with Laura in our allergy department and inform the patient via the portal. If we are able to continue her immunotherapy here, will plan to see her back in 6 months for reassessment. All questions were answered. [email or web address] Not available 07/28/2025 12:47:26 Plan of Treatment Reminders Order Date Submit Date Provider Last Modified By Organization Details Last Modified Time Details Appointments None record ed. Lab None record ed. Referral None record ed. Procedures None record ed. Surgeries None record ed. Imaging None record ed. Medication Orders None record ed. Patient TargetsNo targets recorded. Patient InstructionsNo instructions recorded. Reason for Referral None Reported. Problems Name Problem SNOMED Code Status Onset Date Resolution Date Notes Provider Name and Address Organization Details Recorded Time Seasonal allergic rhinitis 787560547 Active 2024 JOSIANE FUNK [address] [address], [place], [phone], [facility] - [facility] 12:48:32 Obstructive sleep apnea syndrome 96370636 Active 2024 JOSIANE FUNK [address] [address], [place], [phone], [facility] 12:48:43 Problem Notes None recorded. Medical Equipment None Reported. Allergies No known drug allergies Medications Name Sig Start Date Stop Date Status Note LastModified by Organization Details LastModified Time atorvastati n 20 mg tablet TAKE 1 TABLET BY MOUTH EVERY DAY active Not Available Not Available No t Available spironolact one 25 mg tablet TAKE 1 TABLET BY MOUTH 1 TIME EACH DAY. active Not Available Not Available No t Available amlodipine 10 mg tablet TAKE 1 TABLET BY MOUTH 1 TIME EACH DAY. active Not Available Not Available No t Available rizatriptan 10 mg disintegrat ing tablet DISSOLVE 1 TABLET BY MOUTH ONCE, MAY REPEAT IN 2 HOURS IF UNRESOLVE D. DO NOT EXCEED 30 MG /24 HOURS. active Not Available Not Available No t Available triamterene 75 mg-hydrochl orothiazide 50 mg tablet TAKE 1 TABLET BY MOUTH 1 TIME EACH DAY. 07/28 completed Not Available Not Available Not Available topiramate 100 mg tablet TAKE 1 TABLET BY MOUTH TWICE A DAY active Not Available Not Available No t Available potassium chloride ER 20 mEq tablet,exte nded release TAKE 1 TABLET BY MOUTH TWICE A DAY 07/28 completed Not Available Not Available Not Available Wegovy 2.4 mg/0.75 mL subcutaneou s pen injector INJECT 2.4 MG UNDER THE SKIN EVERY 7 (SEVEN) DAYS. INJECT 2.4 MG SUBCUTANE OUSLY ONE TIME PER WEEK 07/28 completed Not Available Not Available Not Available Wegovy 1.7 mg/0.75 mL subcutaneou s pen injector INJECT 1 PEN SUBCUTANE OUSLY ONCE A WEEK 09/11 /2025 completed Not Available Not Available Not Available Wegovy 1 mg/0.5 mL subcutaneou s pen injector INJECT 1MG INTO THE SKIN ONCE A WEEK 07/28 completed Not Available Not Available Not Available Wegovy 0.25 mg/0.5 mL subcutaneou s pen injector INJECT 0.25 MG UNDER THE SKIN EVERY 7 DAYS 07/28 completed Not Available Not Available Not Available Wegovy 0.5 mg/0.5 mL subcutaneou s pen injector INJECT 0.5 MG INTO THE SKIN EVERY 7 DAYS. FOR 4WKS THEN CALL OFFICE FOR INCREASED DOSE 1MG WEEKLY. 07/28 completed Not Available Not Available Not Available Vitals Date Recorded Body height Body mass index (BMI) Body weight Provider Name and Address Organization Details Last Updated DateTime 07/28/2025 162.56 cm 35.5 kg/m2 99104.62 g Maria Esther Larsen [place] - [facility] 07/28/2025 09:54:20 Social History None recorded. Functional Status None recorded. Mental Status None recorded. Family History Nothing Reported. Medical History Condition Response Migraines Y Hypertension Y Gynecological HistoryNo gynecological history recorded. Obstetrics History GPAL:G 0 P 0 0 0 0 Past Encounters Encounter ID Performer Location Encounter Start Date Encounter Closed Date Diagnosis/Indication Diagnosis SNOMED-CT Code Diagnosis ICD10 Code Diagnosis IMO Codes Diagnosis Note [id number] JOSIANE FUNK [facility] on [address] [place] [phone] 07/28/2025 09:50:02 07/28/2025 10:43:44 Seasonal allergic rhinitis 414493255 J30.2 4040357 Obstructiv e sleep apnea syndrome 00233042 G47.33 [id number] Compliant with therapy. Continue as recommende d. Health Concerns Section Related Observation LastModified by Organization Detai ls LastModified Time None Recorded Concern Status LastModified by Organization Details LastModified Time None Recorded Advance Directives Directive None Recorded Payers Insurance Date Sequence Insurance Name Policy Number Policy Marie Covered Member ID Marie Member ID Guarantor Name 09/05/2025 1 [facility] (MEDICARE REPLACEMENT/A DVANTAGE - PPO) [id number] Abigail Mcintyre [id number] Abigail Mcintyre 09/05/2025 2 [place] [facility] Abigail Mcintyre [id number] Abigail Mcintyre Notes Date Note Type Note Provider Name and Address Organization Details Recorded Time 07/28/2025 text/html ROS as noted in the HPI 65 year old female, and former patient of Dr. Carrington with a history of WANG on CPAP therapy and allergic rhinitis, presents to establish care with our office. Patient initiated SCIT 5+ years ago through Dr. Carrington's office. He has since retired and has not been told when the new physician at that practice will be starting. Patient receives injections on a monthly basis now with excellent effect. Last injection was on 07/20/25. She does not require xcig-bcw-vqfnfak allergy medication for additional management. History of ear and sinus infections in the past, usually during the fall season, but none in a long time. Patient is asymptomatic at the moment. She does have migraines and takes rizatriptan as needed. Last headache was months ago. JOSIANE FUNK [address] [place] [address],[address] [address], [place], [phone], [facility] - [facility] 07/28/2025 12:49:44 OBGyn Episode No OBEpisode recorded.
--- OUTSIDE RECORDS SUMMARY | 2025-11-02 08:13 | XMS_ITS | Clinical Summary ---
Author Organization Patient Business Ser [facility] Address [address] [place] [address] Care Team Providers Care Car Customizer Name Role Phone Candace Mirza MD Primary Care Provider Allergies No known active allergies Medications calcium carbonate-vit D3-min 600 mg-10 mcg (400 unit) tablet Take 1 Tablet by mouth daily. 01/05/20 24 Active rizatriptan ([facility]) 10 mg disintegrating tablet May repeat in [...] Nocturnal hypoxemia 04/13/2025 Anxiety 06/13/2022 Morbid obesity 06/13/2022 Prediabetes 05/07/2022 Right-sided chest wall pain 08/31/2021 [...] Type Department Care Team Description 08/22/2025 Telephone [facility] [address] [place] [phone] Sajan Atkins PA 08/19/2025 9:30 AM EDT Office Visit [facility] [address] [place] [phone] Sajan Atkins, PA Class 2 obesity (Primary Dx); Essential hypertension; Hyperlipidemia, unspecified; Obstructive sleep apnea syndrome; Other migraine without status migrainosus, not intractable; Flu vaccine need 08/19/2025 Results Follow-Up Adult Medicine [place] [address] [place] [phone] Sajan Atkins PA from Last [...] the TI. UPPER GASTROINTESTINAL ENDOSCOPY 2017 PROCEDURE: [place] UPPER GI ENDOSCOPY PERFORMED; COMMENT: Celia; PREET [...] your loved ones. For example, child care sitter or elderly care for an older adult? [...] 01/23/2026 8:00 AM EDT Appointment Radiology Department [address] [phone] 04/11/2026 9:30 AM EDT Office Visit Adult Medicine - [place] [address] [place] [phone] Candace Mirza MD [address] [place] [address] 04/19/2026 8:00 AM EDT Office Visit Pulmonology - [address] [place] [phone] Olga Cooper MD [address] [place] [phone] Health Maintenance Due Date Last Done Comments Pneumococcal Vaccine: 50+ Years (1 of 1 - PCV) 2010 Medicare Annual Wellness Visit 08/27/2020 Falls Risk Assessment 2025 COVID-19 Vaccine (3 - season) 2025 10/22/2021, 02/19/2021 Social Influencers of [...] LAB CHEMISTRY METHOD 08/19/2025 12:34 PM EDT [facility] Triglycerides 175(H) 0 - 150 mg/dL LAB CHEMISTRY METHOD 08/19/2025 12:34 PM EDT [facility] HDL 70 >=40 mg/dL LAB CHEMISTRY METHOD 08/19/2025 12:34 PM EDT [facility] LDL Calculated 84 0 - 100 mg/dL LAB CHEMISTRY METHOD 08/19/2025 12:34 PM EDT [facility] Comment:Estimated LDL Calcul ated using equation: Total cholesterol - HDL cholesterol - (Triglycerides/5) VLDL Cholesterol Mohsen 35 mg/dL LAB CHEMISTRY METHOD 08/19/2025 12:34 PM EDT [facility] Non HDL Chol. (LDL+VLDL) 119 <145 mg/dL LAB CHEMISTRY METHOD 08/19/2025 12:34 PM EDT [facility] Chol/HDL Ratio 2.7 0.0 - 4.4 LAB CHEMISTRY METHOD 08/19/2025 12:34 PM [facility] Blood Venous blood specimen / Unknown Venipuncture / Unknown 08/19/2025 9:44 AM EDT 08/19/2025 9:44 AM EDT us Sajan JOSHUA LAB BLOOD ORDERABLES Final Re sult [facility] [address] [place] [address], [place] [phone] * (ABNORMAL) Comprehensive metabolic panel (08/19/2025 9:44 AM EDT) Sodium 142 133 - 145 mmol/L LAB CHEMISTRY METHOD 08/19/2025 12:34 PM [facility] Potassium 3.9 3.5 - 5.5 mmol/L LAB CHEMISTRY METHOD 08/19/2025 12:34 PM [facility] Chloride 112(H) 96 - 110 mmol/L LAB CHEMISTRY METHOD 08/19/2025 12:34 PM [facility] CO2 22 21 - 32 mmol/L LAB CHEMISTRY METHOD 08/19/2025 12:34 PM [facility] Anion Gap 8 3 - 11 LAB CHEMISTRY METHOD 08/19/2025 12:34 PM [facility] Glucose 94 70 - 100 mg/dL LAB CHEMISTRY METHOD 08/19/2025 12:34 PM [facility] BUN 19 5 - 25 mg/dL LAB CHEMISTRY METHOD 08/19/2025 12:34 PM [facility] Creatinine 1.00 0.50 - 1.10 mg/dL LAB CHEMISTRY METHOD 08/19/2025 12:34 PM [facility] eGFR 63 >=60 mL/min/1. 73m2 LAB CHEMISTRY METHOD 08/19/2025 12:34 PM [facility] Comment:Calculation based on the Chronic Kidney Disease Epidemiology Collaboration (CKD-EPI) equation refit without adjustment for race. BUN/Creatinine Ratio 19.0 LAB CHEMISTRY METHOD 08/19/2025 12:34 PM [facility] Calcium 9.4 8.5 - 10.5 mg/dL LAB CHEMISTRY METHOD 08/19/2025 12:34 PM [facility] AST (SGOT) 13 10 - 42 unit/L LAB CHEMISTRY METHOD 08/19/2025 12:34 PM [facility] ALT (SGPT) 28 10 - 60 unit/L LAB CHEMISTRY METHOD 08/19/2025 12:34 PM [facility] Alkaline Phosphatase 102 42 - 121 unit/L LAB CHEMISTRY METHOD 08/19/2025 12:34 PM [facility] Total Protein 6.2 6.0 - 8.0 g/dL LAB CHEMISTRY METHOD 08/19/2025 12:34 PM [facility] Albumin 3.7 3.2 - 5.0 g/dL LAB CHEMISTRY METHOD 08/19/2025 12:34 PM [facility] Total Bilirubin 0.4 0.0 - 1.4 mg/dL LAB CHEMISTRY METHOD 08/19/2025 12:34 PM [facility] Blood Venous blood specimen / Unknown Venipuncture / Unknown 08/19/2025 9:44 AM EDT 08/19/2025 9:44 AM EDT Sajan JOSHUA LAB BLOOD ORDERABLES Final Re sult [facility] ([facility] [address] [place] [address], [place] [phone] * MG Mammo Digital Screening w Dayday bilat (01/20/2025 7:55 AM EST) Anatomical Region Laterality Modality Breast Bilateral Mammography 01/20/2025 6:43 PM EST Impressions 01/20/2025 6:46 PM EST No mammographic evidence of malignancy. BREAST DENSITY: B - There are scattered areas of fibroglandular density. BI-RADS CATEGORY: 1 - NEGATIVE RECOMMENDATION: Screening bilateral mammogram is recommended in 1 year. MAMMO LOCATION: [facility], [address] [place] [address], [id number], . -------- FINAL REPORT -------- Dictated By: Amanda Cantu Dictated Date: 01/20/2025 18:43 ET Assigned Physician: Amanda Cantu Reviewed and Electronically Signed By: Amanda Cantu Signed Date: 01/20/2025 18:46 ET Workstation ID: [id number] Transcribed By: Self Edit Transcribed Date: 01/20/2025 [...] architectural distortion, or suspicious calcifications. Procedure Note Aamnda Cantu MD - 01/20/2025 EXAM: Screening Mammogram [...] is recommended in 1 year. MAMMO LOCATION: [facility], [address] [place] [address], [id number], . -------- FINAL REPORT -------- Dictated By: Amanda Cantu Dictated Date: 01/20/2025 18:43 ET Assigned Physician: Amanda Cantu Reviewed and Electronically Signed By: Amanda Cantu Signed Date: 01/20/2025 18:46 ET Workstation ID: [id number] Transcribed By: Self Edit Transcribed Date: 01/20/2025 [...] Based on the World Health Organization criteria, Maureen Mcintyre should be classified as having osteopenia. This patient has a 7.8% risk of major osteoporotic fracture and a 0.8% risk of hip fracture over the next 10 years. (World Health Organization Fracture Risk Assessment) [facility] Department of Internal Medicine recommends using National [...] Based on the World Health Organization criteria, Maureen Mcintyre should beclassified as having osteopenia. This patient has a 7.8% risk of majorosteoporotic fracture and a 0.8% risk of hip fracture over the next 10years. (World Health Organization Fracture Risk Assessment) [facility] Department of Internal Medicine recommendsusing National Osteoporosis [...] R esult * Hepatitis C Screening (05/24/2019) [facility] Hepatitis C Screening Abstracted Historical Provider HEALTH MAINTENANCE Final Result * Colonoscopy (09/24/2017) [facility] Colonoscopy No interpretation , Abstracted Anatomical Region Laterality Modality Other Historical Provider HEALTH MAINTENANCE Final Result from Last 3 Months or Most Recently Relevant to Health Maintenance Insurance MEDICARE MEDICAID - [place] [employer] MEDICARE Care Teams Car Customizer Relationship Specialty Start Date End Date Candace Mirza MD [address] [place] [phone] PCP - General Internal Medicine 01/22/22
== END 2025-11-02 08:07 | disposition home or self-care (01) ==
LOC: HO.HMGAL 08:07
PROVIDERS: PCP Family Medicine; Visit Provider Registered Nurse Emergency
DX: J30.89 Other allergic rhinitis (principal)
CPT/HCPCS: 95117; 95165